=== PATIENT | male | born 1945 | race Caucasian/White ===

== ENCOUNTER → 2024-07-16 13:59 | Outpatient (REF) | payer MEDICARE, OTHER, SELFPAY | LOC: RAD 13:59 | PROVIDERS: ATTENDING PHYSICIAN Specialist; FAMILY PHYSICIAN Family Medicine | DX: R31.0 Gross hematuria (principal) | CPT/HCPCS: 74178; Q9967 ==

== ENCOUNTER 2024-10-01 16:24 | Emergency (ER) | payer MEDICARE, OTHER, SELFPAY ==
[2024-10-01] VITALS (9 sets, daily range): BP systolic 135–160; BP diastolic 53–71; BMI 27.0
[2024-10-01 17:04] LABS: % Basophils 0.8 % (0-2); % Eosinophils 1.4 % (0-6); % Immature Granulocytes 0.2 % (0-0.5); % Lymphocytes 21.7 % (20.5-51.1); % Monocytes 11.6 % (1.7-9.3); % Neutrophils 64.3 % (42.2-75.2); Absolute Basophils 0.1 10^3/uL (0-0.2); Absolute Eosinophils 0.1 10^3/uL (0-0.7); Absolute Lymphocytes 1.4 10^3/uL (1.2-3.4); Absolute Monocytes 0.7 10^3/uL (0.1-0.6); Hematocrit 38.9 % (39.0-52.0); Hemoglobin 13.2 g/dL (13.0-18.0); Mean Corp Hgb Conc. 33.9 g/dL (33.0-37.0); Mean Corpuscular Hgb 33.3 pg (27.0-31.0); Mean Corpuscular Volume 98.2 fL (80.0-94.0); Mean Platelet Volume 9.7 fL (7.4-10.4); Nucleated Red Blood Cells % 0 % (-); Platelet Count 243 10^3/uL (130-400); Red Blood Cell Count 3.96 10^6/uL (4.70-6.10); Red Cell Dist. Width 12.1 % (11.5-14.5); White Blood Cell Count 6.3 10^3/uL (4.8-10.8)
[2024-10-01 17:32] LABS: Troponin I < 0.012 ng/ml
[2024-10-01 17:36] LABS: ALT (SGPT) 16 U/L (0-50); AST (SGOT) 23 U/L (17-59); Albumin 4.6 g/dl (3.5-5.0); Alkaline Phosphatase 60 U/L (38-126); Blood Urea Nitrogen 23 mg/dl (9-20); Calcium 9.2 mg/dl (8.4-10.2); Carbon Dioxide 28 mmol/L (22-30); Chloride 99 mmol/L (98-107); Estimated Creatinine Clearance 66 ml/min; Glucose 112 mg/dl (70-99); Magnesium 2.1 mg/dl (1.6-2.3); Potassium 4.7 mmol/L (3.5-5.1); Sodium 136 mmol/L (135-145); Total Bilirubin 0.6 mg/dl (0.2-1.3); Total Protein 7.5 g/dl (6.3-8.2); eGFR > 60.00
[2024-10-01 18:20] LABS: TSH Reflex To Free T4 2.35 uIU/ml (0.47-4.68)
--- NOTE | 2024-10-01 18:43 | ED.GENMED ---
History of Present Illness
General
Chief Complaint: Heart Rate Problem
Time Seen by Provider: 10/01/24 17:24
History of Present Illness
History of Present Illness:
79-year-old male with history of A-fib status post ablation in 2016 presenting for palpitations. Patient notes that he is on Xarelto and propafenone. He suspects his symptoms are consistent with A-fib, is not usually in the rhythm. Denies chest
pain. Does note that he has been a little lightheaded. Denies any difficulty breathing. Denies abdominal pain or GI symptoms. His catalyst supervisor is Dr. Styles. Reports compliance with his Xarelto. Denies additional acute medical complaints
Past History
Past History
ED Past Medical History: Arrthythmia, HTN, Hypercholesterolemia and Other (prostate ca)
ED Past Surgical History: Orthopedic
Social History
Tobacco: Non-smoker
Alcohol: Daily
Drug: None
Personal:
Living: with family
Employment: Retired
Family History
Family History: Other (Noncontributory)
Phy Exam
Physical Exam
Physical Exam:
General: Well-appearing, no clinical signs of dehydration, nontoxic and in no acute distress
HEENT: protecting airway
Neck: appears supple
CV: Normal heart rhythm, irregularly irregular rhythm, no evidence of cyanosis
Resp: No accessory muscle use, no increased work of breathing, lungs clear to auscultation bilaterally
Abd: No distention
Extremities: No deformities, no swelling
Neuro: alert, no focal neurologic deficit
: deferred
Rectal: deferred
Psych: Normal affect
Skin: Intact
Course
Orders/Labs/Results
Orders:
Orders
10/01/24 16:28
Electrocardiogram (*1) Urgent
Reason for Study: Chest Pain
EKG- Treatment ONCE
10/01/24 16:55
Complete Blood Count/With Diff Urgent
Comprehensive Metabolic Panel Urgent
Magnesium Urgent
TSH Reflex To Free T4 Urgent
Troponin I Urgent
10/01/24 18:52
Propofol [Diprivan] 20 ml .ROUTE .STK-MED
10/01/24 19:02
Electrocardiogram (*1) Urgent
Reason for Study: Other
Other Reason for Exam: cardioversion
EKG- Treatment ONCE
Abnormal Lab Results
10/01/24
16:55
RBC 3.96 L 10^6/uL
(4.70-6.10)
Hct 38.9 L %
(39.0-52.0)
MCV 98.2 H fL
(80.0-94.0)
MCH 33.3 H pg
(27.0-31.0)
Absolute Monos (auto) 0.7 H 10^3/uL
(0.1-0.6)
Monocytes % 11.6 H %
(1.7-9.3)
BUN 23 H mg/dl
(9-20)
Glucose 112 H mg/dl
(70-99)
10/01/24 16:55
10/01/24 16:55
Vital Signs
Initial and Last Documented VS:
Initial Vital Signs
Temp Pulse Resp BP Pulse Ox
98.2 F 51 20 145/59 99
10/01/24 16:40 10/01/24 16:40 10/01/24 16:40 10/01/24 16:40 10/01/24 16:40
Last Documented Vital Signs
Temp Pulse Resp BP Pulse Ox
98.6 F 80 15 160/58 99
10/01/24 19:05 10/01/24 19:05 10/01/24 19:05 10/01/24 19:00 10/01/24 19:05
Procedures
Cardioversion
Indication:: Afib
Performed by:: Rachael Bartlett DO
Synchronized?: Yes
Energy Used: 200 joules
Number of attempts: 1
Successful?: Yes
Complications: none
ASA Risk Score: Class II
Any reaction or bad outcome to prior sedation/anesthesia?: No history of a reaction
Sedation level to be attained: moderate
Chart and allergies reviewed: Yes
Patient reassessed prior to sedation: Yes
Time out completed at (validating right patient & procedure): 18:59
History of difficult intubation: No
Airway free of obstruction: Yes
Patient has a gag reflex: Yes
Patient is able to open mouth: Yes
Patient has no dentures: Yes
Patient has no loose teeth: Yes
Medication administered by Provider during Moderate Sedation: IV Propofol (mg)
Total dose administered: 70
Time drug administered: 19:00
Start Time: 19:00
Stop Time: 19:10
MDM/Problems Addressed
MDM/Problems Addressed:
79-year-old male with history of A-fib on Xarelto presenting for palpitations. Vital signs on arrival are normal.
Patient is resting comfortably in examination, no acute distress. EKG confirms A-fib. Patient feels that his symptoms are consistent with his atrial fibrillation and is requesting cardioversion. Feel reasonable, is compliant with medications.
However, EKG shows a new left bundle branch block. Patient reports that he was told he had this in the past. Will consult with cardiology. Otherwise no respiratory distress, no signs of volume overload on exam or concern for acute on chronic
heart failure.
18:40 -Discussed with Dr. Briones from cardiology, notes that patient intermittently goes into a left bundle branch, may be rate related. He feels that cardioversion is reasonable. Will plan to proceed with synchronized cardioversion
19:10 -successful cardioversion. Conversion to sinus rhythm. Will continue to monitor until stable for ambulation and discharge. Plan for outpatient cardiology follow-up.
*EKG
Interpreted by ED Provider?: Yes
EKG Intrepretation Date: 10/01/24
EKG Intrepretation Time: 18:45
Interpretation: abnormal
Comparison EKG: changes noted (2021)
Heart Rate: 83
Rate: normal
Rhythm: sinus
[place]: left axis deviation
Interval: normal interval
QRS Pattern: left bundle branch block
Ischemia: non-specific ST changes
*Critical Care Note
Total Time (30-74mins, 75-104mins- exclusive of procedures): Not Applicable
ED Attending Note
-
Portions of this chart may have been created with voice recognition software.� Occasional wrong word or��sound alike� substitutions may have occurred due to the inherent limitations of voice recognition software.
Discharge Plan
Departure
Patient with high blood pressure during this ER visit?: Yes
Condition: Good
Discharge Problem:
Paroxysmal atrial fibrillation, Encounter for cardioversion procedure
Instructions: MODERATE SEDATION ADULT, Cardioversion - Discharge instructions
Prescriptions:
No Action
simvastatin 40 MG tablet
40 mg PO DAILY
propafenone 225 MG tablet
225 mg PO TID
cholecalciferol (vitamin D3) [Vitamin D3] 1,000 UNIT capsule
3,000 unit PO DAILY
diphenhydramine-acetaminophen [Tylenol PM Extra Strength] 1 EACH tablet
1 ea PO HS
lisinopril 20 MG tablet
20 mg PO HS
rivaroxaban [Xarelto] 20 MG tablet
20 mg PO DAILY Qty: 0 0RF
Rx Instructions:
HOLD post cath- OK to resume on 09/20 in AM
Referrals:
Harsha Garrett MD [Family Provider] -
Vinay Styles MD [Active] -
Activity Restrictions/Additional Instructions:
You were seen in the emergency department for palpitations
You were found to be in atrial fibrillation. You had synchronized cardioversion with return to sinus rhythm. Please follow-up with your catalyst supervisor.
Please follow-up closely with your primary care physician.
Return to the emergency department for any worsening of your symptoms, or any development of chest pain, difficulty breathing, abdominal pain with persistent vomiting and inability to tolerate food or liquid by mouth (concern for dehydration),
weakness, headache or confusion, fever greater than 100.4, or any additional symptoms that are concerning to you.
Thank you for choosing [facility].
Interventions
Interventions:
*Risk Screen - Suicide Last Done: 10/01/24 17:08
*General Assessment Last Done: 10/01/24 16:40
*Neglect/Abuse Screening Last Done: 10/01/24 17:08
ED- Fall Risk Assessment Last Done: 10/01/24 17:33
*ED COVID-19 Vaccine History Last Done: 10/01/24 17:08
ED- Cardiac Assessment Last Done: 10/01/24 17:32
ED- Pulmonary Assessment Last Done: 10/01/24 17:32
Discharge Date and Time
Print Language: [place]
== END 2024-10-01 20:33 | disposition home or self-care (01) ==
LOC: EMR 16:24
PROVIDERS: EMERGENCY PHYSICIAN Student in an Organized Health Care Education/Training Program; FAMILY PHYSICIAN Family Medicine
DX: I48.0 Paroxysmal atrial fibrillation (principal); I10 Essential (primary) hypertension
CPT/HCPCS: 92960; 99285; 99152; 80053; 83735; 84443; 84484; 85025; 93005